=== PATIENT | male | born 1945 | race Caucasian/White ===

== ENCOUNTER 2016-07-21 07:30 | Day surgery (SDC) | payer MEDICARE ==
[2016-07-14 12:47] LABS: BASOPHILS 0.4 %; BASOPHILS ABSOLUTE 0.03 10/3/uL (0.0-0.16); EOSINOPHILS 2.4 %; EOSINOPHILS ABSOLUTE 0.19 10/3/uL (0.0-0.53); HEMATOCRIT 38.5 % (40.0-51.0); HEMOGLOBIN 13.2 g/dL (13.6-17.8); IMMATURE GRANULOCYTES 0.2 %; IMMATURE GRANULOCYTES ABSOLUTE 0.02 10/3/uL (0.0-0.11); LYMPHOCYTES 27.4 %; LYMPHOCYTES ABSOLUTE 2.21 10/3/uL (0.67-4.30); MEAN CORPUS HGB CONC 34.3 g/dL (32.0-36.0); MEAN CORPUSCULAR VOLUME 87.5 fL (80-100); MEAN PLATELET VOLUME 10.4 fL (9.2-13.0); MONOCYTES 6.2 %; NEUTROPHILS 63.4 %; NEUTROPHILS ABSOLUTE 5.11 10/3/uL (2.02-8.40); PLATELET COUNT 265 10/3/uL (150-400); RBC DISTRIBUTION WIDTH 14.1 % (12.0-16.0); WHITE BLOOD CELLS 8.1 10/3/uL (4.5-10.5)
[2016-07-14 12:49] LABS: BUN (BLOOD UREA NITROGEN) 18 MG/DL (6-23); CALCIUM, SERUM 9.1 MG/DL (8.5-10.4); CHLORIDE, SERUM 105 MMOL/L (96-112); CO2 (CARBON DIOXIDE) 26 MMOL/L (24-34); GFR AFRICAN AMERICAN 88 ML/MIN (>=60); GFR NON AFRICAN AMERICAN 76 ML/MIN (>=60); GLUCOSE, SERUM 133 MG/DL (60-99); POTASSIUM, SERUM 4.5 MMOL/L (3.5-5.3); SODIUM, SERUM 140 MMOL/L (135-148)
[2016-07-14 12:50] LABS: MANUAL DIFF NO %
--- NOTE | ~2016-07-21 | OP ---
Record Of [facility] [address] [place]. [address] NAME: LESLIE RAMIREZ JR : 47 STATUS : REG [facility] PAT#: [id number] AGE: 71 ADM/REG DATE : 07/21/16 MR#: [id number] REPORT SERV DATE: 07/21/16 DICTATED BY: BRIAN ASENCIO DATE: 07/21/16 REPORT STATUS : Draft TRANSCRIBED BY: MODL DATE: 07/21/16 DATE OF PROCEDURE: 07/21/2016 PREOPERATIVE DIAGNOSES: 1. Elevated PSA. 2. Anal stenosis. POSTOPERATIVE DIAGNOSES: 1. Elevated PSA. 2. Anal stenosis. PROCEDURES PERFORMED: 1. Transrectal ultrasound with prostate needle biopsy. 2. Dilation of anus. SURGEON: Brain Asencio M.D. ANESTHESIA: MAC. COMPLICATIONS: None. DRAINS: None. SPECIMEN: Sextant prostate needle biopsies. INDICATION: Mr. Ramirez is a 71-year-old with BPH symptoms. His PSA has progressively risen. He presents for transrectal ultrasound with prostate needle biopsies. He has anal stenosis. I was unable to perform NGA in the office, given the tight nature of the anal stenosis. He understands an anal dilation will be necessary to perform biopsies. TECHNIQUE: Informed consent was obtained. He received Rocephin preoperatively. He was brought to the operating room, placed in the left lateral decubitus position. Monitored anesthesia care was administered. Physical exam showed tight anal stenosis. I used rectal sounds and sequentially dilated up to a size 24 sound. Next, the NGA was performed. There was a 40 g prostate with asymmetry, left larger than right. No obvious rectal masses. A transrectal ultrasound probe was inserted. Ultrasonographic images were obtained. Prostate showed no hyperechoic lesions. Volume was estimated at 38 mL. There was no bladder stone. There was no median lobe. Seminal vesicles were nondilated. Sextant prostate needle biopsies were obtained with two specimens from each Sextant. The ultrasound probe was removed. Digital pressure was held against the biopsy sites for 2 minutes after the procedure. There was mild bleeding from the anal dilation. He tolerated the procedure, taken to the recovery room in satisfactory condition. He will follow up in two weeks to review pathology. Record Of [facility] [address] [place]. [address] NAME: LESLIE RAMIREZ JR : 47 STATUS : REG [facility] PAT#: [id number] AGE: 71 ADM/REG DATE : 07/21/16 MR#: [id number] REPORT SERV DATE: 07/21/16 DICTATED BY: BRIAN ASENCIO DATE: 07/21/16 REPORT STATUS : Draft TRANSCRIBED BY: HANH DATE: 07/21/16 [facility]/HANH Brian Asencio M.D. / [id number] CC: Jon Sands M.D.
[~2016-07-21 07:30] MED LIST: ALLEGRA180 PO; AMARYL2 PO; FLOMAX4 PO; GLUCPH PO; MULTIPLE VIT PO; PROTONIX PO
[2016-09-12] MEDS ORDERED: MIRALAX POWDER1 PKT PO (15:02)
[2016-09-12] MEDS ORDERED: MINERAL OIL PO (15:03)
[2016-09-12] MEDS ORDERED: ADVIL PO (15:04)
== END 2016-07-21 17:35 | disposition home or self-care (01) ==
LOC: SDC 07:30
PROVIDERS: Urology
PROC: 0D7Q7ZZ Dilation of Anus, Via Natural or Artificial Opening (ICD-10-PCS; 2016-07-21)
PROC: 0VB03ZX Excision of Prostate, Percutaneous Approach, Diagnostic (ICD-10-PCS; principal; 2016-07-21 08:45)
DX: C61 Malignant neoplasm of prostate (principal); K62.4 Stenosis of anus and rectum; R97.20 Elevated prostate specific antigen [PSA]; E11.9 Type 2 diabetes mellitus without complications; K21.9 Gastro-esophageal reflux disease without esophagitis; Z88.0 Allergy status to penicillin; Z87.891 Personal history of nicotine dependence; Z98.890 Other specified postprocedural states
CPT/HCPCS: 76872; 76942; 80048; 82962; 85025; 88305; 93005; J2405; J3010

== ENCOUNTER 2016-09-21 05:16 | Inpatient (IN) | payer MEDICARE ==
[2016-09-14 10:42] LABS: PARTIAL THROMBO TIME 28.1 SEC (22.5-37.2); PROTIME (NOT ORD) 12.7 SEC (12.0-14.5)
[2016-09-14 10:43] LABS: BASOPHILS 0.4 %; BASOPHILS ABSOLUTE 0.03 10/3/uL (0.0-0.16); EOSINOPHILS 2.8 %; EOSINOPHILS ABSOLUTE 0.19 10/3/uL (0.0-0.53); HEMATOCRIT 39.8 % (40.0-51.0); HEMOGLOBIN 13.5 g/dL (13.6-17.8); IMMATURE GRANULOCYTES 0.1 %; IMMATURE GRANULOCYTES ABSOLUTE 0.01 10/3/uL (0.0-0.11); LYMPHOCYTES 23.8 %; MEAN CORPUS HGB CONC 33.9 g/dL (32.0-36.0); MEAN CORPUSCULAR HEMOGLOB 29.7 pg (26.0-34.0); MEAN CORPUSCULAR VOLUME 87.7 fL (80-100); MEAN PLATELET VOLUME 10.4 fL (9.2-13.0); NEUTROPHILS 66.9 %; NEUTROPHILS ABSOLUTE 4.48 10/3/uL (2.02-8.40); PLATELET COUNT 306 10/3/uL (150-400); RBC DISTRIBUTION WIDTH 14.2 % (12.0-16.0); RED CELL COUNT 4.54 10/6/uL (4.7-6.1); WHITE BLOOD CELLS 6.7 10/3/uL (4.5-10.5)
[2016-09-14 10:44] LABS: MANUAL DIFF NO %
[2016-09-14 10:46] LABS: BUN (BLOOD UREA NITROGEN) 19 MG/DL (6-23); CALCIUM, SERUM 9.4 MG/DL (8.5-10.4); CHLORIDE, SERUM 105 MMOL/L (96-112); CO2 (CARBON DIOXIDE) 25 MMOL/L (24-34); CREATININE 1.11 MG/DL (0.70-1.30); GFR AFRICAN AMERICAN 78 ML/MIN (>=60); GFR NON AFRICAN AMERICAN 67 ML/MIN (>=60); GLUCOSE, SERUM 142 MG/DL (60-99); POTASSIUM, SERUM 4.5 MMOL/L (3.5-5.3); SODIUM, SERUM 142 MMOL/L (135-148)
[2016-09-14 11:28] LABS: ASCORBIC ACID (UR NOT ORDER) NEG (NEG); BILIRUBIN, URINE NEGATIVE (NEG); KETONE, URINE NEGATIVE (NEG); LEUKOCYTE ESTERASE(NOT OR NEG (NEG); WBC (NOT ORDERED) (RFLEX) < 1 (0-5)
--- NOTE | ~2016-09-21 | PREOPHP ---
PreOp History and Physical [id number] [place]. [address] NAME: LESLIE RAMIREZ JR : 47 STATUS : PRE IN PAT#: [id number] AGE: 71 ADM/REG DATE : MR#: [id number] REPORT SERV DATE: 09/20/16 DICTATED BY: KWADWO KAUR DATE: 09/20/16 REPORT STATUS : Draft TRANSCRIBED BY: MODL DATE: 09/20/16 CHIEF COMPLAINT: Adenocarcinoma of the prostate, clinical stage T1c, Brett score 3+4=7, maximum PSA of 11.3. HISTORY OF PRESENT ILLNESS: Mr. Ramirez is a 71-year-old male, who was recently diagnosed with adenocarcinoma of the prostate. Elevated PSA led to the biopsies. Biopsy revealed [place] score 3+4=7 from the left mid gland and left apex. He had a [place] score of 6 from the left base. Different treatment options regarding management of prostate cancer were proposed to the patient. He has decided to proceed with laparoscopic robot-assisted radical prostatectomy. He will be admitted after that procedure. The patient has some mild-to- moderate obstructive voiding symptoms which are well-controlled with tamsulosin. He is not sexually active. PAST MEDICAL HISTORY: Significant for diabetes mellitus, diverticulosis, and inguinal hernias. PAST SURGICAL HISTORY: Includes tonsillectomy, lungs surgery, and bilateral inguinal hernia repair with mesh. FAMILY HISTORY: Negative for prostate cancer. SOCIAL HISTORY: Occasional alcohol use. He was a tobacco user, but quit in 1980. FAMILY HISTORY: Negative for prostate cancer. REVIEW OF SYSTEMS: He wears glasses. Has diabetes, constipation, and hearing loss. PHYSICAL EXAMINATION: GENERAL: Shows a well-developed, well-nourished white male, in no acute distress. He is awake, alert, and oriented x3. HEENT: Sclerae anicteric. NECK: Supple. LUNGS: Clear. HEART: Regular rate and rhythm. ABDOMEN: Soft, nontender, no palpable abdominal mass. No hepatosplenomegaly. GENITOURINARY: Penis normal. Testes descended. No inguinal hernia. Prostate is large, but smooth. No nodules. LOWER EXTREMITIES: No deformities. RECTAL: He does have anal stenosis. IMPRESSION: Adenocarcinoma of the prostate, clinical stage T1c, Brett score 3+4=7, maximum PSA of approximately 11. PLAN: Laparoscopic robot-assisted radical prostatectomy. Potential complications of bleeding, infection, urinary incontinence, bladder neck obstruction, loss of ejaculate, erectile dysfunction, and injury to adjacent structures such as bladder, ureters, rectum, PreOp History and Physical [address] [place] [address] NAME: LESLIE RAMIREZ JR : 47 STATUS : PRE IN PAT#: [id number] AGE: 71 ADM/REG DATE : MR#: [id number] REPORT SERV DATE: 09/20/16 DICTATED BY: KWADWO KAUR DATE: 09/20/16 REPORT STATUS : Draft TRANSCRIBED BY: HANH DATE: 09/20/16 colon, intestine, nerves, as well as bowel obstruction complications and lymphocele formation have all been explained to the patient. He both manually and verbally consents to proceed. PF/MODL Kwadwo Kaur M.D. / [id number] CC: Jon Wilson M.D.
--- NOTE | ~2016-09-21 | OP ---
Record Of Operation [facility] [address] [place]. [address] NAME: LESLIE FERNÁNDEZ JR : 47 STATUS : ADM IN PAT#: [id number] AGE: 71 ADM/REG DATE : 09/21/16 MR#: [id number] REPORT SERV DATE: 09/21/16 DICTATED BY: KWADWO KAUR DATE: 09/21/16 REPORT STATUS : Draft TRANSCRIBED BY: MODL DATE: 09/21/16 DATE OF PROCEDURE: 09/21/2016 PREOPERATIVE DIAGNOSIS: Adenocarcinoma of the prostate. Clinical stage T1c, Brett score 3+4=7. Maximum PSA 11.3. POSTOPERATIVE DIAGNOSIS: Adenocarcinoma of the prostate. Clinical stage T1c, Brett score 3+4=7. Maximum PSA 11.3. PROCEDURES: Laparoscopic robot-assisted radical prostatectomy and laparoscopic robot- assisted pelvic node sampling. SURGEON: Kwadwo Kaur M.D. TORCH SOLDERER: Dino Miranda. ANESTHESIA: General and local. BLOOD LOSS: Estimated 125 mL. FLUID REPLACEMENT: 2 L of crystalloid. DRAINS: 15 mm Rolando drain in prevesical space and an 18-Mozambican Kaur catheter per urethra. INDICATIONS: A 71-year-old male, recently diagnosed with adenocarcinoma of the prostate. Different options regarding management of prostate cancer were proposed to the patient. He decided to proceed with laparoscopic robot-assisted radical prostatectomy. TECHNIQUE: The patient was identified, brought to the operating room, and after general anesthetic agent by the anesthesia service, intubated. Positioned in dorsal lithotomy position. He was appropriately padded and secured to the table. The entire abdomen, penis, groin, scrotum, and perineum were prepped and draped in usual sterile fashion. A 16-Mozambican Kaur catheter was passed in the bladder and left for drainage. A 3 cm skin incision was made above the umbilicus, carried down to the rectus fascia. The rectus fascia was exposed and holding sutures were placed in the fascia. The fascia was elevated and incised transversely. The underlying peritoneum was identified and opened sharply. A balloon trocar was placed in the peritoneal space. A pneumoperitoneum was created by insufflating carbon dioxide. The abdominal pressure was raised to 15 mmHg, held there through the remainder of case until otherwise specified. Da Mahin laparoscope was placed through the trocar. The underlying bowel was inspected and appeared intact. The patient was placed in steep Trendelenburg and 3 robot arm ports and 2 residential real estate assistant ports were placed under direct vision. Once the ports were in position, da Mahin robot was brought to the table and mated to the ports. I opened the peritoneal cul-de-sac sharply as it overlaid the seminal structures. The left and right vasa deferentia were dissected out and clipped proximally, transected distally. Record Of Operation [facility] [id number] [place]. [address] NAME: LESLIE FERNÁNDEZ JR : 47 STATUS : ADM IN PAT#: [id number] AGE: 71 ADM/REG DATE : 09/21/16 MR#: [id number] REPORT SERV DATE: 09/21/16 DICTATED BY: KWADWO KAUR DATE: 09/21/16 REPORT STATUS : Draft TRANSCRIBED BY: HANH DATE: 09/21/16 The left and right seminal vesicles were dissected out with clips along the lateral border blood supply. I opened Denonvilliers fascia sharply through the rectum off the undersurface of prostate and mobilized the neurovascular bundles off the undersurface of the prostate. I divided median umbilical ligaments and the urachus near the umbilicus. The patient had a previous laparoscopic inguinal hernia repair with a mesh on the right. After I sharply dissected the bladder off the mesh, I opened the peritoneum just lateral to the median umbilical ligaments all the way to the vasa deferentia bilaterally. The left side was more pristine. Once the bladder was mobilized, the fat overlying the prostate gland was taken off with sharp dissection. I pierced the endopelvic fascia, the prostatic vesicle junction and opened the endopelvic fascia all the way out to the puboprostatic ligaments bilaterally. The dorsal venous complex was isolated and secured with laparoscopic LIANA stapling device. It was later oversewn with 3-0 Monocryl. I mobilized the neurovascular bundles off the apices of the prostate bilaterally. I carried the dissection all the way back to the posterior pedicles. I switched to 30-degree down lens and developed a plane with the bladder neck and the prostate. I opened the anterior bladder neck and elevated the Kaur catheter. I then came through the posterior bladder neck. I took the lateral attachment of the bladder off the prostate sharply. I carried my dissection down to the previously dissected out seminal structures. The posterior pedicles on each side were secured with locking clips and then divided. The prostate was now mobile all the way out to the apex. The last attachment of the striated sphincter taken off the apex of the prostate. The urethra was divided sharply and the posterior striated sphincter was divided. The specimen was inspected. It appeared intact. I placed the specimen in retrieval bag and held for later retrieval. I lowered the abdominal pressure down to 7 mmHg. I held it there through the remainder of the case. The pelvis was irrigated copiously. Fastidious hemostasis had been maintained. I performed posterior reconstruction in 2 layers with 3-0 V-Loc. I then did a modified van Velthoven vesicourethral anastomosis with 3-0 V-Loc. The anastomosis was completed, and I inserted a new 18-Mozambican Kaur catheter. The anastomosis was tested by filling the bladder with 240 mL of saline. It held without any extravasation. The bladder was drained and 12 mL of sterile water inflating the catheter balloon. I sampled the external iliac and obturator lymph nodes from the left side. Locking clips and metallic clips were used for lymphostasis with hemostasis. The specimen packet was placed into a specimen retrieval bag and held for later retrieval. The instruments were taken out of the 3rd robot arm port. A 15 mm Rolando was left through that port and into the prevesical space. The ports were removed and drain was sutured to the skin with 2-0 Prolene. I undocked the da Mahin robot. I transferred the strings of the specimen bags out through the umbilical port. The residential real estate assistant 12 mm port was removed, and the Record Of Operation [address] [place]. [address] NAME: ERINLESLIE Faria : 47 STATUS : ADM IN PAT#: [id number] AGE: 71 ADM/REG DATE : 09/21/16 MR#: [id number] REPORT SERV DATE: 09/21/16 DICTATED BY: KWADWO KAUR DATE: 09/21/16 REPORT STATUS : Draft TRANSCRIBED BY: MODL DATE: 09/21/16 fascia there was closed with a Saeed-Troy endoscopic closure system. All ports were then removed under low pressure. No port site bleeding was noted. I extended my transverse incision in the fascia at the umbilicus by 1 cm in each direction. I then delivered the specimen out through the wound. I closed the fascia with figure-of- eight 0 Vicryl sutures. The subcutaneous tissue of all ports irrigated copiously and then, subcutaneous tissue of the larger port sites closed with 3-0 Vicryl. The skin of all ports closed with 4-0 Monocryl. Dressings were applied. The catheter secured. The patient was awakened and taken to the recovery unit in a stable and satisfactory condition. [place]/HANH Kwadwo Kaur M.D. / [id number] CC: Kwadwo Kaur M.D.
[~2016-09-21 05:16] MED LIST changes: +ADVIL PO; +MINERAL OIL PO; +MIRALAX POWDER1 PKT PO
[2016-09-22 06:04] LABS: HEMATOCRIT 35.6 % (40.0-51.0)
[2016-09-22 06:06] LABS: CHLORIDE, SERUM 104 MMOL/L (96-112); CO2 (CARBON DIOXIDE) 24 MMOL/L (24-34); CREATININE 0.81 MG/DL (0.70-1.30); GFR AFRICAN AMERICAN 104 ML/MIN (>=60); GFR NON AFRICAN AMERICAN 90 ML/MIN (>=60); GLUCOSE, SERUM 118 MG/DL (60-99); POTASSIUM, SERUM 4.4 MMOL/L (3.5-5.3)
[2016-09-22 06:07] LABS: BUN (BLOOD UREA NITROGEN) 7 MG/DL (6-23); CALCIUM, SERUM 8.3 MG/DL (8.5-10.4); SODIUM, SERUM 135 MMOL/L (135-148)
[2016-09-22] MEDS ORDERED: NORCO1 TA1 PO (11:32)
== END 2016-09-22 12:59 | disposition home or self-care (01) | DRG 707 ==
LOC: SDC/OF 05:16 → PACU 11:32 → 4SO 14:34
PROVIDERS: Urology
PROC: 0VT04ZZ Resection of Prostate, Percutaneous Endoscopic Approach (ICD-10-PCS; principal; 2016-09-21 06:30)
PROC: 07BC4ZX Excision of Pelvis Lymphatic, Percutaneous Endoscopic Approach, Diagnostic (ICD-10-PCS; principal; 2016-09-21 06:30)
PROC: 0VTQ4ZZ Resection of Bilateral Vas Deferens, Percutaneous Endoscopic Approach (ICD-10-PCS; principal; 2016-09-21 06:30)
PROC: 8E0W4CZ Robotic Assisted Procedure of Trunk Region, Percutaneous Endoscopic Approach (ICD-10-PCS; principal; 2016-09-21 06:30)
PROC: 0VT34ZZ Resection of Bilateral Seminal Vesicles, Percutaneous Endoscopic Approach (ICD-10-PCS; principal; 2016-09-21 06:30)
DX: C61 Malignant neoplasm of prostate (principal); N13.8 Other obstructive and reflux uropathy; E11.9 Type 2 diabetes mellitus without complications; K57.90 Diverticulosis of intestine, part unspecified, without perforation or abscess without bleeding; Z87.891 Personal history of nicotine dependence; K21.9 Gastro-esophageal reflux disease without esophagitis
CPT/HCPCS: 80048; 81001; 82962; 83735; 85014; 85018; 85025; 85610; 85730; 88305; 88307; 88309; 93005; A9270-GY; J0360; J0690; J2250; J2405; J2550; J2710; J3010